=== PATIENT | male | born 1950 | race Caucasian/White ===

== ENCOUNTER 2024-10-05 00:26 | Day surgery (SDC) | payer BC, SELFPAY ==
[2024-09-19 10:56] VITALS: BMI 26.1
--- OUTSIDE RECORDS SUMMARY | 2024-10-05 00:30 | XMS_ITS | Encounter Summary ---
Author Organization [facility] Address [address] [place] [address] Care Team Providers Care Education Assistant Name Role Phone YulietfallonJosué DO Primary Care Provider Encounter Details Date Type Department Care Team (Late st Contact Info) Description 12/31/2022 Lab Requisition [facility] - DermPath Lab [address] [facility], [facility] [place] [id number] Jesse Tamez Jr., MD [address] [facility] [address] [place] [address] Social History Tobacco Use Types Packs/Day Years Used Date Smoking Tobacco: Never Assessed Sex and Gender Information Value Date Recorded Sex Assigned at Not on file 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 Gender Identity Not on file Sexual Orientation Not on file documented as of this encounter Plan of Treatment Not on file documented as of this encounter Procedures Procedure Name Priority Date/Time Associated Diagnosis Comments DERMATOPATHOLOGY Routine 12/30/2022 3:33 AM CDT documented in this encounter Results * DERMATOPATHOLOGY (12/30/2022 3:33 AM CDT) Case Report Dermatopathology Report Case: [id number] Authorizing Provider: Jesse Tamez Jr., MD Collected: 12/30/2022 03:33 AM Ordering Location: [facility] DermPath Lab Received: 12/31/2022 12:13 PM Pathologist: Patience Claros MD Specimen: Skin, right lateral submandibular cheek 3 2:22 PM CDT DERMATOPATHOLOGY LABORATORY Final Diagnosis Specimen A. SKIN, right lateral submandibular cheek: SEBORRHEIC KERATOSIS, RETICULATED (ADENOID) TYPE (L82.1) 3 2:22 PM CDT DERMATOPATHOLOGY LABORATORY at 1422 CDT Clinical History Melanoma vs. Pigmented Seborrheic Keratosis vs. Lentigo 3 2:22 PM CDT DERMATOPATHOLOGY LABORATORY Gross Description Specimen A: Received is one formalin filled container labeled with the patient's name and designated right lateral submandibular cheek. The specimen consists of a shave biopsy measuring 59g72c5 mm. Jar 0. 3 2:22 PM CDT DERMATOPATHOLOGY LABORATORY Microscopic Description Specimen A. SKIN, right lateral submandibular cheek: There is reticulated hyperplasia of the epidermis with overlying delicate hyperorthokeratosis . Hyperpigmentation is present in the basaloid cells. 3 2:22 PM CDT DERMATOPATHOLOGY LABORATORY Disclaimer An external and internal positive and negative controls are appropriate for the histochemical, immunohistochemical and immunofluorescence stain(s) in this case (if any), except where stated explicitly. The performance characteristics of the stain(s) cited in this report were developed and its performance characteristic determined by the Dermatopathology Laboratory at [facility], directed by Dr. Tawny Rodarte. These tests need not be, and therefore are not, approved by the [place] Food and Drug Administration. The tests are used for clinical purposes. Billing Codes Specimen Charges Stain Charges 76584 1 3 2:22 PM CDT DERMATOPATHOLOGY LABORATORY Embedded Images 3 2:22 PM CDT DERMATOPATHOLOGY LABORATORY Pathology/Cytolo gy TISSUE SPECIMEN FROM SKIN / Unknown 12/30/2022 3:33 AM CDT 12/31/2022 12:13 PM CDT us Jesse Tamez Jr., MD LAB - PATHOLOGY/CYTOLOG Y ORDERABLES Final Result DERMATOPATHOLOGY LABORATORY [facility] - Department of Dermatology [address] [place] [address], [facility] [place] [phone] documented in this encounter Visit Diagnoses Not on filedocumented in this encounter Care Teams Education Assistant Relationship Specialty Start Date End Date Josué Montanez DO PCP - General 12/14/07 documented as of this encounter
--- OUTSIDE RECORDS SUMMARY | 2024-10-05 00:30 | XMS_ITS | Clinical Summary ---
Author Organization [facility] Address [address] [place] [address] Care Team Providers Care Hand Bobbin Cleaner Name Role Phone Josué Montanez DO Primary Care Provider [phone]- [phone] Source Comments [facility],non-owned Affiliates and Associated Physician Practices is amultiple site organization consisting of ambulatory clinics and hospital sitesin [place], [place], [place] and [place]. This disclosure is being madepursuant to the Care Everywhere program and may not contain all information available regarding this patient. 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 Gender Identity Not on file Sexual Orientation Not on file Plan of Treatment Health Maintenance Due Date Last Done Comments COLOGUARD (AGES 45-75) - COL ON CA SCREENING 1950 COLON MONITORING 1950 COLONOSCOPY - COLON CA SCREENING 1950 CT COLONOGRAPHY - COLON CA SCREENING 1950 Colorectal Cancer Screening 1950 FIT - COLON CA SCREENING 1950 FLEX SIG - COLON CA SCREENING 1950 LIPID TESTING 1950 HEPATITIS C SCREENING 01/07/1967 DTAP/TDAP/TD VACCINES (1 - Tdap) 01/12/1968 PNEUMOCOCCAL VACCINE 50+ (1 of 1 - PCV) 1999 ZOSTER VACCINE (1 of 2) 1999 COVID-19 VACCINE ( - 2023-2 5 season) 2023 Respiratory Syncytial Virus (RSV) Vaccine Pt: or over 60 yrs (1 - 1-dose 75+ series) 01/12/2024 DEPRESSION SCREENING 03/02/2024 INFLUENZA VACCINE (#1) 2024 HEPATITIS B VACCINE Aged Out No longe r eligible based on patient's age to complete this topic HIB VACCINE Aged Out No longer eligi ble based on patient's age to complete this topic HPV VACCINE Aged Out No longer eligi ble based on patient's age to complete this topic MENINGOCOCCAL (Group B) VACC INE SHARED DECISION-MAKING Aged Out No longer eligibl e based on patient's age to complete this topic MENINGOCOCCAL GROUPS A/C/Y/W VACCINE Aged Out No longer eligible b ased on patient's age to complete this topic Insurance [facility] Care Teams Hand Bobbin Cleaner Relationship Specialty Start Date End Date Josué Montanez DO PCP - General 12/14/07
--- OUTSIDE RECORDS SUMMARY | 2024-10-05 00:30 | XMS_ITS | Continuity of Care Document ---
Author Organization [facility] Address [address] [place] [address] Phone Care Team Providers Care Pipe And Boiler Covers Supervisor Name Role Phone Johnson Hugo Unavailable Unavailable Procedures Procedure Date Eye Exam Established Pt Eye Exam Established Pt Eye Exam Established Pt Eye Exam Established Pt Office/outpatient Visit, New Visual Field Examination(s) Ophthalmoscopy Advance Directives Directive Yes / No Effective Date File Name No Information Encounters Encounter Description Practice Location Reason(s) For Visit Diagnoses Date Provider Providers Copied on Encounter [facility], [address] [place] [address] [address], [place], [place], [id number], [place] tel:[phone] [facility] No Information Bethel Ornelas. [address], [place], [facility], [place]. tel:[phone] Referring Provider: Johnson Valdivia, [address], [place], [facility]. tel:[phone] [facility], [address] [place] [address] [address], [place], [place], [id number], [place] tel:[phone] [facility] No Information Bethel Ornelas. [address] [place], [address], [place]. tel:[phone] [facility], [address] [place] [address] [address], [place], [place], [id number], tel:[phone] SEC [facility] No Information Bethel Ornelas. [address], [place], [facility], . tel:[phone] [facility], [address] [place], [place] [address], [place], [place], [id number], tel:[phone] [facility] No Information Bethel Ornelas. [address], [facility], . tel:[phone] Referring Provider: Johnson Valdivia, [address], [place], [facility]. tel:[phone] Office/outpat ient Visit, [facility], [address], [place], [place], [id number], tel:[phone] [facility] No Information Bethel Ornelas. [address] [place], [address], [place]. tel:[phone] Referring Provider: Johnson Valdivia, [address], [place], [facility]. tel:[phone] Family History Family Member Type Diagnosis Age At Onset No Information Payers Payer name Insurance type Covered constitution party ID Authoriza tion(s) No Information Social History Type Description Quantity Date Captured Comments Sex Male Smoking Status No Information Chief Complaint And Reason For Visit No Information Reason For Referral Reason For Referral No Information History Of Present Illness Encounter Date Complaint History Of Prese nt Illness No Information Functional Status Date Functional Assessmen t No Information Instructions Date Instruction Additional Infor mation No Information Assessments Type Assessment Date No Information Patient Care Teams Name Effective Dates (start - stop) Status Members No Information
--- OUTSIDE RECORDS SUMMARY | 2024-10-05 06:35 | XMS_ITS | Continuity of Care Document ---
Author Organization [facility] Address [address] [place] [address] Phone Care Team Providers Care Boat Rental Clerk Name Role Phone Johnson Hugo Unavailable Unavailable Procedures Procedure Date Eye Exam Established Pt Eye Exam Established Pt Eye Exam Established Pt Eye Exam Established Pt Office/outpatient Visit, New Visual Field Examination(s) Ophthalmoscopy Advance Directives Directive Yes / No Effective Date File Name No Information Encounters Encounter Description Practice Location Reason(s) For Visit Diagnoses Date Provider Providers Copied on Encounter [facility], [address] [place] [address] [address], [place], [place], [id number], [place] tel:[phone] SEC [facility] No Information Bethel Ornelas. [address] [place], [place], [facility], [place]. tel:[phone] Referring Provider: Johnson Valdivia, [address], [place], [facility]. tel:[phone] [facility], [address] [place] [address] [address], [place], [place], [address], [place] tel:[phone] [facility] No Information Bethel Ornelas. [address] [place], [address], [place]. tel:[phone] [facility], [address] [place] [address] [address], [place], [place], [id number], tel:[phone] SEC [facility] No Information Bethel Ornelas. [address], [place], [facility], . tel:[phone] [facility], [address] [place], [place] [address] [address], [place], [place], [address], tel:[phone] [facility] No Information Bethel Ornelas. [address], [place], [facility], . tel:[phone] Referring Provider: Johnson Valdivia, [address], [place], [facility]. tel:[phone] Office/outpat ient Visit, [facility], [address], [place], [place], [address], tel:[phone] [facility] No Information Bethel Ornelas. [address] [place], [address], [place]. tel:[phone] Referring Provider: Johnson Valdivia, [address], [place], [facility]. tel:[phone] Family History Family Member Type Diagnosis Age At Onset No Information Payers Payer name Insurance type Covered republican ID Authoriza tion(s) No Information Social History [...]
--- OUTSIDE RECORDS SUMMARY | 2024-10-05 06:35 | XMS_ITS | Clinical Summary ---
Author Organization [facility] Address [address] [place] [address] Care Team Providers Care High Energy Forming Equipment Operator Name Role Phone Josué Montanez DO Primary Care Provider [phone] Source Comments [facility],non-owned Affiliates and Associated Physician Practices is amultiple site organization consisting of ambulatory clinics and hospital sitesin [place], [place], [place] and [place]. This disclosure is being madepursuant to the Care Everywhere program and may not contain all information available regarding this patient. 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
--- OUTSIDE RECORDS SUMMARY | 2024-10-05 06:35 | XMS_ITS | Encounter Summary ---
Author Organization [facility] Address [address] [place] [address] Care Team Providers Care Director Of Public Safety Name Role Phone YulietfallonJosué DO Primary Care Provider Encounter Details Date Type Department Care Team (Late st Contact Info) Description 12/31/2022 Lab Requisition 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 DermPath Lab Received: 12/31/2022 12:13 PM Pathologist: [...] specimen consists of a shave biopsy measuring 02x76w0 mm. Jar 0. 3 2:22 PM CDT [...] characteristic determined by the Dermatopathology Laboratory at [facility], directed by Dr. Tawny Rodarte. These tests need not be, and therefore are not, approved by the [place] Food and Drug Administration. The tests are used for clinical purposes. Billing Codes Specimen Charges Stain Charges 33569 1 3 2:22 PM CDT DERMATOPATHOLOGY LABORATORY Embedded Images 3 2:22 PM CDT DERMATOPATHOLOGY LABORATORY Pathology/Cytolo gy TISSUE SPECIMEN FROM SKIN / Unknown 12/30/2022 3:33 AM CDT 12/31/2022 12:13 PM CDT us Jesse Tamez Jr., MD LAB - PATHOLOGY/CYTOLOG Y ORDERABLES Final Result DERMATOPATHOLOGY LABORATORY [facility] - Department of Dermatology [address] [place] [address], [facility] [phone] documented in this encounter Visit Diagnoses Not on filedocumented in this encounter Care Teams Director Of Public Safety Relationship Specialty Start Date End Date Josué Montanez DO PCP - General 12/14/07 documented as of this encounter
[2024-10-05 06:47] VITALS: BP 138/72; PULSE 75; RESP 18; TEMP 36.3; O2SAT 98; BMI 25.1
--- NOTE | 2024-10-05 07:02 | P.PNAN_ITS ---
Anes - Initial Pre Proc Eval Procedure: Operation Date: 10/05/24 08:00 Proposed Procedures p Screening Colonoscopy - Feliciano Diop MD Date/Time: 10/05/24 07:02 Surgeon: Feliciano Diop MD Pre Op Diagnosis: Encounter for screening for malignant neoplasm of Patient Data Age: 74 Gender: M Height: 1.73 m Weight: 75 kg Last Vital Signs Temp 36.3 C L 10/05/24 06:47 Pulse 75 10/05/24 06:47 Resp 18 10/05/24 06:47 BP 138/72 10/05/24 06:47 Pulse Ox 98 10/05/24 06:47 O2 Del Method Room Air 10/05/24 06:47 Allergies Allergy/AdvReac Type Severity Reaction Status Date / Time acetaminophen (From AdvReac Intermediate Nausea and Verified 10/05/24 06:55 Darvocet-N) Vomiting propoxyphene (From AdvReac Unknown Nausea and Verified 10/05/24 06:55 Darvocet-N) Vomiting Home Medications ?Medication ?Instructions ?Recorded ?Confirmed ?Type aspirin 81 mg tablet,delayed 81 mg PO DAILY 03/05/23 10/05/24 History release diclofenac sodium 75 mg 75 mg PO BID #60 tabs 03/05/23 10/05/24 Rx tablet,delayed release metformin 500 mg tablet 500 mg PO DAILY 03/05/23 10/05/24 History omega-3 fatty acids 500 mg capsule 500 mg PO DAILY 03/05/23 10/05/24 History rosuvastatin 10 mg tablet 10 mg PO DAILY 03/05/23 10/05/24 History telmisartan 40 mg tablet 40 mg PO DAILY 03/05/23 10/05/24 History Patient hx anesthesia problems: none Family hx anesthesia problems: none Results Review: All pre-operative results and documents have been reviewed as part of the pre- operative evaluation. [facility] Past Medical History Medical History Diabetes Hyperlipidemia Hypertension Surgical History Surgical History History of hernia repair History of shoulder surgery bilateral shoulder- Family History Family History Father Diabetes mellitus Family history of congestive heart failure Mother Carcinoma of colon Family history of Alzheimer's disease Social History Social History Smoking status: Never smoker Alcohol intake: never Alcohol use details: rarely Substance use: never Substance use type: does not use Do You Feel Safe in your Home?: Yes Lack of Transportation: No Lack of Food: Never True Current Housing: I Have Housing Concerned About Future Housing: No Difficulty Paying Gas/Electric Bills: No Difficulty Paying for Meds: No Currently Unemployed: No Education: Associate Degree Difficulty w/ Childcare or Family Care: No Living arrangements: with family Occupation/Education: occupation 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 Informed Consent: The patient's anesthetic plan and its attendant risks and benefits were discussed with the patient/family/POA. Questions were solicited and answers provided to the satisfaction of the patient/family/POA.
[2024-10-05] MEDS: LACTATED RINGERS 1,000 ML 150 ML IV CONT (07:12)
--- NOTE | 2024-10-05 07:56 | P.HP_ITS ---
H&P: HPI History of Present Illness Date/Time: 10/05/24 07:56 Chief Complaint: Family history colon cancer Narrative: This patient has family history of colorectal cancer. his mother had colorectal cancer in her 60s. Review of Systems Review of Systems: All systems reviewed & are unremarkable except as noted in HPI and below PMFSH Past Medical History Medical History Diabetes Hyperlipidemia Hypertension Surgical History Surgical History History of hernia repair History of shoulder surgery bilateral shoulder- Family History Family History Father Diabetes mellitus Family history of congestive heart failure Mother Carcinoma of colon Family history of Alzheimer's disease Social History Social History Smoking status: Never smoker Alcohol intake: never Alcohol use details: rarely Substance use: never Substance use type: does not use Do You Feel Safe in your Home?: Yes Lack of Transportation: No Lack of Food: Never True Current Housing: I Have Housing Concerned About Future Housing: No Difficulty Paying Gas/Electric Bills: No Difficulty Paying for Meds: No Currently Unemployed: No Education: Associate Degree Difficulty w/ Childcare or Family Care: No Living arrangements: with family Occupation/Education: occupation 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 Spiritual care concerns: No Meds Home Medications and Allergies Home Medications ?Medication ?Instructions ?Recorded ?Confirmed ?Type aspirin 81 mg tablet,delayed 81 mg PO DAILY 03/05/23 10/05/24 History release diclofenac sodium 75 mg 75 mg PO BID #60 tabs 03/05/23 10/05/24 Rx tablet,delayed release metformin 500 mg tablet 500 mg PO DAILY 03/05/23 10/05/24 History omega-3 fatty acids 500 mg capsule 500 mg PO DAILY 03/05/23 10/05/24 History rosuvastatin 10 mg tablet 10 mg PO DAILY 03/05/23 10/05/24 History telmisartan 40 mg tablet 40 mg PO DAILY 03/05/23 10/05/24 History Allergies Allergy/AdvReac Type Severity Reaction Status Date / Time acetaminophen (From AdvReac Intermediate Nausea and Verified 10/05/24 06:55 Darvocet-N) Vomiting propoxyphene (From AdvReac Unknown Nausea and Verified 10/05/24 06:55 Darvocet-N) Vomiting Vital Signs Vital Signs - 24 hr 10/05/24 06:47 Temperature 97.4 F L Pulse Rate 75 Respiratory Rate 18 Blood Pressure 138/72 Pulse Oximetry 98 Oxygen Delivery Room Air Exam Const: General: cooperative and healthy appearing Resp: Effort & Inspection: normal respiratory effort and able to speak in complete sentences Auscultation: clear to auscultation bilaterally Cardio: Rate: regular rate Rhythm: regular rhythm GI: Inspection: normal to inspection GI Palp: No No hepatosplenomegaly present Auscultation: normal bowel sounds Rectal Exam: deferred Skin: General skin exam: normal color Psych: Appearance: grossly normal Mental Status: mental status grossly normal Assessment and Plan Assessment and plan (1) Family history of colon cancer: Code(s): Z80.0 - Family history of malignant neoplasm of digestive organs Status: Acute Assessment and Plan: The patient is deemed a good candidate for the procedure. Consent signed. Will proceed.
--- NOTE | 2024-10-05 08:16 | S_PTH ---
PATIENT: Josué De Los Santos LOC: [facility] #:[id number] AGE/SX: 74/M ROOM: RE10/05/[address]: Feliciano Diop MD : 1950 BED: DIS: 10/05/2024 SPEC #: [id number] RECD: 10/05/24 09:07 STATUS: KIRSTEN RE #: [id number] RAMU: 10/05/24 08:[address]: Feliciano Diop DEPT: [facility] Surgical RECD BY: Kacey Guerrero ENTERED: 10/05/24 09:07 SP TYPE: Surgical OTHR DR: Lj MontanezMD Tissues: A - Colon Polypectomy Procedures: Hematoxylin and Eosin Stain Gross and Microscopic Level 4
[2024-10-05 08:19] VITALS: BP 116/64; PULSE 69; RESP 15; O2SAT 94
[2024-10-05 08:29] VITALS: BP 133/85; PULSE 77; RESP 15; O2SAT 96
[2024-10-05 08:39] VITALS: BP 143/86; PULSE 69; RESP 20; O2SAT 100
== END 2024-10-05 08:52 | disposition home or self-care (01) ==
PROVIDERS: PCP Internal Medicine; Referring Provider Internal Medicine; Visit Provider Internal Medicine Gastroenterology
PROC: 0DJD8ZZ Inspection of Lower Intestinal Tract, Via Natural or Artificial Opening Endoscopic (ICD-10-PCS; CPT 45378; principal; 2024-10-05 08:00)
DX: Z12.11 Encounter for screening for malignant neoplasm of colon (principal); D12.3 Benign neoplasm of transverse colon; K63.5 Polyp of colon; K64.8 Other hemorrhoids; Z80.0 Family history of malignant neoplasm of digestive organs; E11.9 Type 2 diabetes mellitus without complications
CPT/HCPCS: 45385; 82948; 88305; J2704; J7120

== ENCOUNTER 2025-01-20 12:26 | Emergency (ER) | payer BC, SELFPAY ==
[2025-01-20 12:28] VITALS: BP 172/88; PULSE 85; RESP 16; TEMP 36.3; O2SAT 96
[2025-01-20 13:48] LABS: Add Urine Microscopic? YES; Appearance Urine Cloudy (Clear); Budding Yeast Urine Present /hpf; Glucose Urine UA 2+ mg/dL (Negative); Leukocyte Esterase Ur 1+ LEU/UL (Negative); Need Manual Microscopic Reviewed; Nitrate Urine Negative (Negative); Non Pathogenic Casts 0-2; Specific Grav Ur 1.026 (1.001-1.035)
--- NOTE | 2025-01-20 14:21 | ED.MALEGU ---
HPI - Male Genitourinary General Chief complaint: Urogenital-Male Stated complaint: Sent by , blood in urine Time Seen by Provider: 01/20/25 14:19 Source: patient Mode of arrival: ambulatory Limitations: no limitations History of Present Illness HPI Narrative: 75 years old white male came to the ED with bloody urine. Patient report 8:00 p.m. last night noticed that his pants wet and noticed blood in his underwear. 3:00 a.m. wake up and urinated and urine was reddish color, 4:30 a.m. urinated again and urine was pinkish. Patient denies any fever, chills, nausea, vomiting, abdominal pain or back pain. History of diabetes, hypertension, hyperlipidemia, prostatic enlargement scheduled to see urologist January 30. Related Data Home Medications ?Medication ?Instructions ?Recorded ?Confirmed ?Last Taken ?Type aspirin 81 mg tablet,delayed 81 mg PO DAILY 03/05/23 10/05/24 10/04/24 History release metformin 500 mg tablet 500 mg PO DAILY 03/05/23 10/05/24 10/04/24 History omega-3 fatty acids 500 mg capsule 500 mg PO DAILY 03/05/23 10/05/24 10/04/24 History rosuvastatin 10 mg tablet 10 mg PO DAILY 03/05/23 10/05/24 10/04/24 History telmisartan 40 mg tablet 40 mg PO DAILY 03/05/23 10/05/24 10/04/24 History Allergies Allergy/AdvReac Type Severity Reaction Status Date / Time acetaminophen (From AdvReac Intermediate Nausea and Verified 01/20/25 12:27 Darvocet-N) Vomiting propoxyphene (From AdvReac Unknown Nausea and Verified 01/20/25 12:27 Darvocet-N) Vomiting Review of Systems Review of Systems: All systems reviewed & are unremarkable except as noted in HPI and below PMFSH Past Medical History Medical History Hyperlipidemia Diabetes Hypertension Surgical History Surgical History History of hernia repair History of shoulder surgery bilateral shoulder- Family History Family History Father Diabetes mellitus Family history of congestive heart failure Mother Carcinoma of colon Family history of Alzheimer's disease Social History Social History Smoking status: Never smoker Alcohol intake: never Alcohol use details: rarely Substance use: never Substance use type: does not use Do You Feel Safe in your Home?: Yes Lack of Transportation: No Lack of Food: Never True Current Housing: I Have Housing Concerned About Future Housing: No Difficulty Paying Gas/Electric Bills: No Difficulty Paying for Meds: No Currently Unemployed: No Education: Associate Degree Difficulty w/ Childcare or Family Care: No Living arrangements: with family Occupation/Education: occupation 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 Musculoskeletal: Normal range of motion, nontender back Neurologic: Alert and oriented ?3, ELECTRIC RELAY TESTER is normal as tested, no gross motor deficit Course Vital Signs Vital signs: Vital Signs Temperature 36.3 C L 01/20/25 12:28 Pulse Rate 85 01/20/25 12:28 Respiratory Rate 16 01/20/25 12:28 Blood Pressure 172/88 H 01/20/25 12:28 Pulse Oximetry 96 01/20/25 12:28 Oxygen Delivery Room Air 01/20/25 12:28 Temperature 36.3 C L 01/20/25 12:28 Pulse Rate 85 01/20/25 12:28 Respiratory Rate 16 01/20/25 12:28 Blood Pressure 172/88 H 01/20/25 12:28 Pulse Oximetry 96 01/20/25 12:28 Oxygen Delivery Room Air 01/20/25 12:28 MDM - Male Genitourinary MDM Narrative Medical decision making narrative: Patient presents with painless hematuria. Gradually getting better. Vital signs showing blood pressure 172/88 otherwise within normal limit Differential diagnosis include urinary tract infection, benign prostatic hyperplasia, renal or urinary tract stones/patient should have pain, renal papillary necrosis, other urethral tumors. Blood workup today includes CBC, CMP and coags showed no significant abnormality Urinalysis showed 3+ blood 1+ leukocyte Estrace. Patient looks comfortable, currently asymptomatic My plan to discharge patient on Cipro for 7 days, patient is scheduled see his urologist January 30. My recommendation aggressive workup to rule out the possibility of urinary tract malignancy. The pt was discharged to home.the pt,s condition upon discharge was fair,education was provided to the pt in reference to the final impression,discharge study results,treatment,prognosis and need for follow up . Differential Diagnosis Differential diagnosis: Likely other (As above) Medical Records Attestation: I reviewed the patient's medical records. Lab Data Attestation: I reviewed the patient's lab results. 01/20/25 15:11 01/20/25 15:11 Labs: Lab Results 01/20/25 01/20/25 Range/Units 13:26 15:11 WBC 7.3 (4.5-10.0) K/mm3 RBC 4.73 (4.6-6.20) M/mm3 Hgb 14.4 (14.0-18.0) g/dL Hct 43.0 (42.0-52.0) % MCV 90.9 (80-100) fl MCH 30.4 (26-34) pg MCHC 33.5 (32-36) g/dl RDW 12.6 (11.5-14.5) % Plt Count 222 (150-375) k/mm3 MPV 10.5 H (7.4-10.4) fl Immature Gran % (Auto) 0.5 (0-0.5) % Neut % (Auto) 62.2 (45.5-73.1) % Lymph % (Auto) 25.5 (18.3-44.2) % [place] % (Auto) 8.1 (2.6-8.5) % Eos % (Auto) 2.6 (0-4.4) % Baso % (Auto) 1.1 (0.2-1.2) % Lymph # (Auto) 1.87 (0.9-3.2) K/mm3 [place] # (Auto) 0.6 (0.1-0.6) K/mm3 Eos # (Auto) 0.2 (0-0.3) K/mm3 Baso # (Auto) 0.1 (0.0-0.1) K/mm3 Abs Immat Gran (auto) 0.04 H (0.00-0.031) K/mm3 Absolute Neuts (auto) 4.6 (1.3-6.7) K/mm3 Absolute Nucleated RBC 0.000 (0.0-0.012) K/mm3 Nucleated RBC % 0.0 (0.0-0.2) % PT 13.0 (11.1-14.7) Seconds INR 1.0 Sodium 140 (137-145) mmol/L Potassium 3.9 (3.4-5.0) mmol/L Chloride 106 (98-107) mmol/L Carbon Dioxide 24 (22-30) mmol/L Anion Gap 10 (4-12) mmol/L BUN 23 H (9-20) mg/dL Creatinine 0.81 (0.7-1.3) mg/dL Estim Creat Clear Calc 65 ml/min Estimated GFR > 60 (59 - ) Glucose 99 (65-110) mg/dL Calcium 9.3 (8.4-10.2) mg/dL Total Bilirubin 0.8 (0.2-1.3) mg/dL AST 34 (17-59) U/L ALT 32 (6-50) U/L Alkaline Phosphatase 65 (38-126) U/L Total Protein 7.8 (6.3-8.2) g/dL Albumin 4.8 (3.5-5.1) g/dL Urine Color Yellow (Yellow) Urine Appearance Cloudy H (Clear) Urine pH 5.0 (5.0-9.0) Ur Specific [place] 1.026 (1.001-1.035) Urine Protein 1+ H (Negative) mg/dL Urine Glucose (UA) 2+ H (Negative) mg/dL Urine Ketones Trace H (Negative) mg/dL Ur Blood (Man) 3+ H (Negative) Urine Nitrate Negative (Negative) Urine Bilirubin Negative (Negative) Urine Urobilinogen 1.0 (<2.0) mg/dL Add Ur Microanalysis Reviewed Leukocyte Esterase Rfl 1+ H (Negative) JAYLENE/UL Urine RBC 21-50 H (0-2) /hpf Urine WBC 0-5 (0-3) /hpf Ur Squamous Epith Cells None seen (Few) /hpf Urine Bacteria None seen /hpf Urine Casts 0-2 Urine Yeast (Budding) Present H (None) /hpf Critical Care Time Critical Care Time Critical Care Time: No Discharge Plan Discharge Clinical Impression: Hematuria Patient Disposition: Home Condition: Stable Instructions: Antibiotic Form, Hematuria (ED) Additional Instructions: Return if symptoms are worsening , call your urologist for early appointment, take Tylenol as as needed for aches and pain, continue home medications. Encourage fluid intake Patient Language: Belizean Prescriptions: New ciprofloxacin HCl [Cipro] 500 mg tablet 500 mg PO Q12H Qty: 14 0RF No Action metformin 500 mg tablet 500 mg PO DAILY rosuvastatin 10 mg tablet 10 mg PO DAILY telmisartan 40 mg tablet 40 mg PO DAILY aspirin 81 mg tablet,delayed release (DR/EC) 81 mg PO DAILY omega-3 fatty acids 500 mg capsule 500 mg PO DAILY diclofenac sodium 75 mg tablet,delayed release (DR/EC) 75 mg PO BID Qty: 60 0RF Follow-up/Referrals: Tarik,MD Lj [Primary Care Provider]
--- OUTSIDE RECORDS SUMMARY | 2025-01-20 14:42 | XMS_ITS | Encounter Summary ---
Author Organization [facility] Address [address] [address] Care Team Providers Care Copra Processor Name Role Phone Josué Montanez DO Primary Care Provider Encounter Details Date Type Department Care Team (Late st Contact Info) Description 12/28/2024 Lab Requisition [facility] - DermPath Lab [address] [facility] [place] [id number] Jesse Tamez Jr., MD [address] [facility] [address] [place] [address] Social History Tobacco Use Types Packs/Day Years Used Date Smoking Tobacco: Never Assessed Sex and Gender Information Value Date Recorded Sex Assigned at Not on file 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 Gender Identity Not on file Sexual Orientation Not on file documented as of this encounter Plan of Treatment Not on file documented as of this encounter Procedures Procedure Name Priority Date/Time Associated Diagnosis Comments DERMATOPATHOLOGY Routine 12/27/2024 12:0 0 AM CDT documented in this encounter Results * DERMATOPATHOLOGY (12/27/2024 12:00 AM CDT) Case Report Dermatopathology Report Case: [id number] Authorizing Provider: Jesse Tamez Jr., MD Collected: 12/27/2024 12:00 AM Ordering Location: [facility] - Received: 12/28/2024 10:27 AM DermPath Lab Pathologist: Sue Claros MD Specimen: Skin, left posterior shoulder 2:54 PM CDT DERMATOPATHOLOGY LABORATORY Final Diagnosis Specimen A. SKIN, left posterior shoulder: SOLAR LENTIGO (L81.4) 2:54 PM CDT DERMATOPATHOLOGY LABORATORY at 1454 CDT Clinical History Melanoma vs. Dysplastic Nevus vs. Lentigo 2:54 PM CDT DERMATOPATHOLOGY LABORATORY Gross Description Specimen A: Received is one formalin filled container labeled with the patient's name and designated left posterior shoulder. The specimen consists of a shave biopsy measuring 8x5x1 mm. Jar 0. 2:54 PM CDT DERMATOPATHOLOGY LABORATORY Microscopic Description Specimen A. SKIN, left posterior shoulder: There is orthokeratosis. There is a slight increase in epidermal thickness with lentiginous buds of hyperpigmented keratinocytes. The number of melanocytes is only mildly increased. In the dermis, there is basophilic degeneration of elastic fibers. 2:54 PM CDT DERMATOPATHOLOGY LABORATORY Disclaimer An external and internal positive and negative controls are appropriate for the histochemical, immunohistochemical and immunofluorescence stain(s) in this case (if any), except where stated explicitly. The performance characteristics of the stain(s) cited in this report were developed and its performance characteristic determined by the Dermatopathology Laboratory at [facility], directed by Dr. Tawny Rodarte. These tests need not be, and therefore are not, approved by the [place] Food and Drug Administration. The tests are used for clinical purposes. Billing Codes Specimen Charges Stain Charges 59066 1 2:54 PM CDT DERMATOPATHOLOGY LABORATORY Embedded Images 2:54 PM CDT DERMATOPATHOLOGY LABORATORY Pathology/Cytolog y TISSUE SPECIMEN FROM SKIN / Unknown 12/27/2024 12/28/2024 10:27 AM CDT us Jesse Tamez Jr., MD LAB - PATHOLOGY/CYTOLOG Y ORDERABLES Final Result DERMATOPATHOLOGY LABORATORY [facility] - Department of Dermatology [address] [place] [address], [facility] [phone] documented in this encounter Visit Diagnoses Not on filedocumented in this encounter Care Teams Copra Processor Relationship Specialty Start Date End Date Josué Montanez DO PCP - General 12/14/07 documented as of this encounter
--- OUTSIDE RECORDS SUMMARY | 2025-01-20 14:42 | XMS_ITS | Clinical Summary ---
Author Organization [facility] Address [address] [place] [address] Care Team Providers Care Nursing Professor Name Role Phone Unavailable Primary Care Provider Unavailabl e Allergies Active Allergy Reactions Criticality Noted Date Comments Codeine Nausea and Vomiting Medium 09/24/2009 Medications Telmisartan-Hyd rochlorothiazid (MICARDIS HCT) 40-12.5 mg Oral Tab Take 1 Tab by mouth daily. Active aspirin (CIRILO) 325 mg Oral tablet Take 325 mg by mouth daily. Active rosuvastatin (CRESTOR) 20 mg Oral tablet Take 20 mg by mouth daily. Active tramadol (ULTRAM) 50 mg Oral tabletIndicatio ns:Unilateral inguinal hernia Take 1 Tab by mouth every 6 hours as needed for Pain. Please allow 48 hours from time of notification for medication refill. 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 Gender Identity Not on file Sexual Orientation Not on file Last Filed Vital Signs Vital Sign Reading Time Taken Comments Blood Pressure 146/62 09/24/2009 10:52 AM CDT Pulse 76 09/24/2009 10:52 AM CDT Temperature 36.8 C (98.2 F) 09/24/2009 10:52 AM CDT Respiratory Rate 20 09/24/2009 10:52 AM CDT Oxygen Saturation 98% 09/24/2009 10:52 AM CDT Inhaled Oxygen Concentration - - Weight 78.5 kg (173 lb) 09/24/2009 10:52 AM CDT Height 172.7 cm (5' 8) 09/24/2009 10:52 AM CDT Body Mass Index 26.3 09/24/2009 10:52 AM CDT Plan of Treatment Health Maintenance Due Date Last Done Comments DTAP/TDAP/TD VACCINES (1 - Tdap) 01/12/1968 PNEUMOCOCCAL VACCINE 50+ YEARS (1 of 1 - PCV) 01/11/19 99 ZOSTER VACCINE (1 of 2) 1999 RSV VACCINE (60+ or ) (1 - 1-dose 75+ series) 01/12/2024 INFLUENZA VACCINE (#1) [address] [address] Member Subscriber Plan / Payer (Ef fective 2009-Present) Name:Josué De Los Santos Relation to Subscriber:Self Name:Josué De Los Santos Payer ID:Not on file Type:[place]ody Address: [id number]
--- OUTSIDE RECORDS SUMMARY | 2025-01-20 14:42 | XMS_ITS | Clinical Summary ---
Author Organization [facility] Address [address] [place] [address] Care Team Providers Care Crew Boat Operator Name Role Phone Josué Montanez DO Primary Care Provider Source Comments [facility],non-owned Affiliates and Associated Physician Practices is amultiple site organization consisting of ambulatory clinics and hospital sitesin [place], [place], [place] and [place]. This disclosure is being madepursuant to the Care Everywhere program and may not contain all information available regarding this patient. 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 Gender Identity Not on file Sexual Orientation Not on file Plan of Treatment Health Maintenance Due Date Last Done Comments HEPATITIS C SCREENING 01/07/1967 DTAP/TDAP/TD VACCINES (1 - Tdap) 01/12/1968 PNEUMOCOCCAL VACCINE 50+ (1 of 1 - PCV) 1999 ZOSTER VACCINE (1 of 2) 1999 Respiratory Syncytial Virus (RSV) Vaccine Pt: or over 60 yrs (1 - 1-dose 75+ series) 01/12/2024 DEPRESSION SCREENING 03/02/2024 COVID-19 VACCINE ( - 2024-2 6 season) 2024 INFLUENZA VACCINE (#1) 2024 HEPATITIS B VACCINE [...] on patient's age to complete this topic Procedures Procedure Name Priority Date/Time Associated Diagnosis Comments DERMATOPATHOLOGY Routine 12/27/2024 12:0 0 AM CDT from Last 3 Months Results * DERMATOPATHOLOGY (12/27/2024 12:00 AM CDT) Case Report Dermatopathology Report Case: [id number] Authorizing Provider: Jesse Tamez Jr., MD Collected: 12/27/2024 12:00 AM Ordering Location: [facility] - Received: 12/28/2024 10:27 AM [...] characteristic determined by the Dermatopathology Laboratory at [facility], directed by Dr. Tawny Rodarte. These tests need not be, and therefore are not, approved by the [place] Food and Drug Administration. The tests are used for clinical purposes. Billing Codes Specimen Charges Stain Charges 75073 1 2:54 PM CDT DERMATOPATHOLOGY LABORATORY Embedded Images 2:54 PM CDT DERMATOPATHOLOGY LABORATORY Pathology/Cytolog y TISSUE SPECIMEN FROM SKIN / Unknown 12/27/2024 12/28/2024 10:27 AM CDT Jesse Tamez Jr., MD LAB - PATHOLOGY/CYTOLOG Y ORDERABLES Final Result DERMATOPATHOLOGY LABORATORY [facility] - Department of Dermatology [facility] [address] [place] [address], [address] [phone] from Last 3 Months Insurance ANTHEM Care Teams Crew Boat Operator Relationship Specialty Start Date End Date Josué Montanez DO PCP - General 12/14/07
[2025-01-20 15:21] LABS: Hematocrit 43.0 % (42.0-52.0); Hemoglobin 14.4 g/dL (14.0-18.0); Immature Granulocyte Percent A 0.5 % (0-0.5); Lymphocytes Absolute Auto 1.87 K/mm3 (0.9-3.2); Mean Corpuscular HGB Conc 33.5 g/dl (32-36); Mean Corpuscular Hemoglobin 30.4 pg (26-34); Mean Corpuscular Volume 90.9 fl (80-100); Nucleated Red Blood Cells Absolute Auto 0.000 K/mm3 (0.0-0.012); Nucleated Red Blood Cells Perc 0.0 % (0.0-0.2); Platelet Count Result 222 k/mm3 (150-375); Red Blood Count 4.73 M/mm3 (4.6-6.20); White Blood Count 7.3 K/mm3 (4.5-10.0)
[2025-01-20 15:34] LABS: INR 1.0; Prothrombin Time 13.0 Seconds (11.1-14.7)
[2025-01-20 15:35] LABS: Alanine Aminotransferase 32 U/L (6-50); Albumin Level 4.8 g/dL (3.5-5.1); Alkaline Phosphatase 65 U/L (38-126); Anion Gap 10 mmol/L (4-12); Aspartate Amino Transferase 34 U/L (17-59); Bilirubin,Total 0.8 mg/dL (0.2-1.3); Blood Urea Nitrogen 23 mg/dL (9-20); Calcium 9.3 mg/dL (8.4-10.2); Carbon Dioxide 24 mmol/L (22-30); Chloride 106 mmol/L (98-107); Estimated CRCL calculation 65 ml/min; Estimated Glomerular Filt Rate > 60; Glucose 99 mg/dL (65-110); Potassium 3.9 mmol/L (3.4-5.0); Sodium 140 mmol/L (137-145); Total Protein 7.8 g/dL (6.3-8.2)
== END 2025-01-20 15:52 | disposition home or self-care (01) ==
PROVIDERS: Emergency Medicine; Emergency Provider Emergency Medicine; PCP Internal Medicine
DX: R31.9 Hematuria, unspecified (principal); E11.9 Type 2 diabetes mellitus without complications; I10 Essential (primary) hypertension; E78.5 Hyperlipidemia, unspecified
CPT/HCPCS: 36415; 80053; 81001; 85025; 85610; 87086; 99283